=== PATIENT | female | born 1995 | race Caucasian/White ===

== ENCOUNTER 2016-04-04 09:16 | Inpatient (IN) | payer OTHER ==
[2016-04-04 09:25] VITALS: BMI 36.2
--- NOTE | 2016-04-04 10:59 | PDOC ---
[id number] Timing/Duration: reports: constant Quality: reports: severe <Beth Harman Last Filed: 04/04/16 16:38> <Tami Browne - Last Filed: 04/04/16 19:06> - General Chief Complaint: Pain Stated Complaint: 16 WKS , ABD PAIN Time Seen by Provider: 04/04/16 10:03 Past History - Past Medical History Other medical history: denies - Psycho/Social/Smoking Cessation Hx Anxiety: No Suicidal Ideation: No Smoking History: Never smoked Have you smoked in the past 12 months: No Information on smoking cessation initiated: No Hx Alcohol Use: No Drug/Substance Use Hx: No Substance Use Type: None <Beth Harman Last Filed: 04/04/16 16:38> <Tami Browne - Last Filed: 04/04/16 19:06> - Past Medical History Allergies/Adverse Reactions: Allergies Allergy/AdvReac Type Severity Reaction Status Date / Time No Known Allergies Allergy Verified 04/04/16 09:20 Home Medications: Ambulatory Orders NK [No Known Home Medication] 04/04/16 Review of Systems - Review of Systems Constitutional: No: Chills, Fever ABD/GI: No: Constipated, Nausea, Abdominal cramping : No: Burning, Flank Pain, Hematuria Musculoskeletal: No: Back Pain <Beth Harman Filed: 04/04/16 16:38> *Physical Exam - Vital Signs Last Vital Signs Temp Pulse Resp BP Pulse Ox 98.4 F 89 20 135/79 100 04/04/16 09:20 04/04/16 09:20 04/04/16 09:20 04/04/16 09:20 04/04/16 09:20 - Physical Exam General Appearance: Yes: Appropriately Dressed. No: Apparent Distress HEENT: positive: Normal Voice Neck: positive: Supple Respiratory/Chest: negative: Respiratory Distress Female Pelvic Exam: negative: cervical os closed, CMT, adnexal tenderness, vaginal bleeding Gastrointestinal/Abdominal: positive: Soft. negative: Tender, Distended Musculoskeletal: negative: CVA Tenderness Integumentary: positive: Dry, Warm Neurologic: positive: Fully Oriented, Alert, Normal Mood/Affect <Lara HarmanEpiMerly Last Filed: 04/04/16 16:38> - Vital Signs Last Vital Signs Temp Pulse Resp BP Pulse Ox 98.4 F 100 H 16 135/70 100 04/04/16 09:20 04/04/16 15:35 04/04/16 15:35 04/04/16 15:35 04/04/16 15:35 <Tami Browne - Last Filed: 04/04/16 19:06> ED Treatment Course - LABORATORY CBC & Chemistry Diagram: 04/04/16 11:11 04/04/16 11:11 - RADIOLOGY Radiology Studies Ordered: Category Date Time Status PELVIC / BLADDER US [US] Stat Ultrasound 04/04/16 10:39 Ordered LIMITED US [US] Stat Ultrasound 04/04/16 10:35 Ordered <Beth Harman - Last Filed: 04/04/16 16:38> - LABORATORY CBC & Chemistry Diagram: 04/04/16 11:11 04/04/16 11:11 - ADDITIONAL ORDERS Additional order review: Laboratory Results 04/04/16 04/04/16 11:11 11:11 Sodium 138 Potassium 4.0 Chloride 106 Carbon Dioxide 24 Anion Gap 8 BUN 5 L Creatinine 0.5 L Creat Clearance w eGFR > 60 Random Glucose 86 Calcium 8.8 Total Bilirubin 0.4 AST 14 L ALT 36 Alkaline Phosphatase 102 Total Protein 6.9 Albumin 3.2 L Beta HCG, Quant 10919.1 Urine Color Yellow Urine Appearance Cloudy Urine pH 5.0 Ur Specific [place] 1.015 Urine Protein 2+ H Urine Glucose (UA) Negative Urine Ketones Negative Urine Blood 2+ H Urine Nitrite Positive Urine Bilirubin Negative Urine Urobilinogen Negative Ur Leukocyte Esterase 3+ H Urine RBC 32 Urine WBC 259 Ur Epithelial Cells Rare Urine Bacteria Many Urine Mucus Rare Urine Yeast Moderate 04/04/16 11:11 RBC 4.77 MCV 79.0 L MCHC 32.4 RDW 17.8 H MPV 7.9 Neutrophils % 78.3 Lymphocytes % 14.1 Monocytes % 5.6 Eosinophils % 1.7 Basophils % 0.3 - Medications Given in the ED: ED Medications Discontinued Medications Generic Name Dose Route Start Last Admin Trade Name Freq PRN Reason Stop Dose Admin Ceftriaxone Sodium 1 mg 04/04/16 12:10 04/04/16 12:15 Rocephin - IVPUSH 04/04/16 12:11 Not Given ONCE ONE Sodium Chloride 1,000 mls @ 1,000 mls/hr 04/04/16 12:12 04/04/16 12:20 Normal Saline - IV 04/04/16 13:11 1,000 mls/hr ASDIR STA Administration Ceftriaxone Sodium 1 gm/ 50 mls @ 100 mls/hr 04/04/16 12:23 04/04/16 12:20 Dextrose IVPB 04/04/16 12:52 100 mls/hr ONCE ONE Administration <Tami Browne - Last Filed: 04/04/16 19:06> Medical Decision Making - Medical Decision Making 04/04/16 10:52 20-year-old female, morbid obesity, , approximately 16 weeks with no issues with so far as per patient, presents with urinary retention. Patient states for the past 12 hours, she has not been able to urinate despite having an urge and now having suprapubic discomfort. No hematuria, acute back pain, flank pain, nausea, vomiting, fever or chills. Had last BM 3 days ago which is normal per pt. Denies constipation. No history of similar episode. No new medications. See exam Urinary retention in 2nd trimester Concern for incarcerated gravid uterus vs uti Stable in ED w/ unremarkable pelvic exam and benign abd Has large distended bladder on US w/ +IUP w/ FHR -prasad placed -labs -official OB/bladder US -OB c/s 04/04/16 11:12 04/04/16 11:18 04/04/16 12:11 +uti w/ wbc of 14 on labs. Will give IV ceftriaxone. At this point, >600 cc urine output from prasad. US pending 04/04/16 14:42 IUP at ~15 weeks w/ FHR on US w/ possible low lying placenta, otherwise unremarkable US. Bladder empty w/ prasad in place. Will do TOV in ED and reassess 04/04/16 15:52 While having discussion with pt during which pt revealed that she was able to void on her own after prasad removal, pt then syncopized in front of myself and rest of ED staff. Did hit head but impact was soften when pt's family member partially broke fall. Pt's pulse remained intact and after several seconds, regained consciousness and states she is not sure what happened. Denies NEFF, dizziness,, n/v or cp. FS in the 90s w/ sinus tach to 102 on ekg. Will admit to obs at this time 04/04/16 16:23 04/04/16 16:24 Case d/w hospitalist and pt admitted. Dr Braswell of OB aware <Beth Harman - Last Filed: 04/04/16 16:38> *DC/Admit/Observation/Transfer - Discharge Dispostion Admit: Yes <Beth Harman - Last Filed: 04/04/16 16:38> - Attestations Physician Attestion: I reviewed the case with the mid-level practitioner and agree with the mid- level practitioner's assessment, diagnosis and disposition. <Tami Browne - Last Filed: 04/04/16 19:06> Diagnosis at time of Disposition: Urinary retention UTI (urinary tract infection) Qualifiers: Urinary tract infection type: acute cystitis Hematuria presence: without hematuria Qualified Code(s): N30.00 - Acute cystitis without hematuria Syncope Qualifiers: Syncope type: unspecified Qualified Code(s): R55 - Syncope and collapse - Discharge Dispostion Condition at time of disposition: Fair
[2016-04-04 11:30] LABS: BASOPHIL 0.3 % (0-2.0); EOSINOPHIL 1.7 % (0-4.5); MCH 25.6 pg (25.7-33.7); MCHC 32.4 g/dl (32.0-36.0); MEAN PLT VOLUME 7.9 fl (7.5-11.1); NEUTROPHILS 78.3 % (42.8-82.8); PLATELET COUNT 325 K/MM3 (134-434); RDW 17.8 % (11.6-15.6); WHITE BLOOD COUNT 14.9 K/mm3 (4.0-10.0)
[2016-04-04 11:31] LABS: URINE APPEARANCE CLOUDY; URINE BILIRUBIN NEGATIVE (NEGATIVE); URINE COLOR YELLOW; URINE GLUCOSE (UA) NEGATIVE (NEGATIVE); URINE KETONE NEGATIVE (NEGATIVE); URINE NITRITE POSITIVE (NEGATIVE); URINE UROBILINOGEN NEGATIVE E.U./dl (0.2-1.0)
[2016-04-04 11:32] LABS: URINE BLOOD 2+ (NEGATIVE); URINE LEUK ESTERASE 3+ (NEGATIVE); URINE PROTEIN 2+ (NEGATIVE)
[2016-04-04 11:40] LABS: ALBUMIN 3.2 g/dl (3.4-5.0); ANION GAP 8 (8-16); BILIRUBIN,TOTAL 0.4 mg/dL (0.2-1.0); CALCIUM 8.8 mg/dL (8.5-10.1); CO2 24 mmol/L (21-32); CREATININE 0.5 mg/dL (0.55-1.02); GLUCOSE,RANDOM 86 mg/dL (74-106); SGOT/AST 14 U/L (15-37); SGPT/ALT 36 U/L (12-78); TOT PROT 6.9 g/dl (6.4-8.2)
[2016-04-04 11:55] LABS: ALK PHOS 102 U/L (45-117)
[2016-04-04 12:07] LABS: URINE BACTERIA MANY /hpf (NONE SEEN); URINE MUCUS RARE; URINE RBC 32 /hpf (0-3); URINE WBC 259 /hpf (3-5); YEAST MODERATE
[2016-04-04] MEDS ORDERED: SODIUM CHLORIDE 1,000 ML IV STA (12:12)
[2016-04-04] MEDS ORDERED: CEFTRIAXONE 50 ML ONE (12:17)
[2016-04-04] MEDS ORDERED: CEFTRIAXONE 1 GM in DEXTROSE 5%-WATER - 50 ML IVPB ONE (12:23)
--- NOTE | 2016-04-04 16:22 | HP ---
CHIEF COMPLAINT: Urinary symptoms PCP: None OB: Dr. Alena Olsen HISTORY OF PRESENT ILLNESS: This is an otherwise healthy 20 year old female, , 16 wks , who presented to the ED today complaining of dysuria/ burning on urination and urinary retention since last night. She denies fevers/ chills, vomiting, back pain, or any other symptoms. ER course was notable for: (1) UA with 259 WBCs and positive nitrites, consistent with UTI (2) Rose placed in ED with 600 cc output (3) Rose then removed for trial of void; patient was able to urinate, but then had witnessed syncopal event The patient is currently symptom-free. She believes that her syncope was secondary to not eating all day. Recent Travel: None Social History: Lives with , not employed Smoking: None Alcohol: None Drugs: None Family History: Mother (had HTN and DM), father with HTN Allergies No Known Allergies Allergy (Verified 04/04/16 09:20) HOME MEDICATIONS: Medication Instructions Recorded NK [No Known Home Medication] 04/04/16 REVIEW OF SYSTEMS CONSTITUTIONAL: Absent: fever, chills, diaphoresis, generalized weakness, malaise, loss of appetite, weight change HEENT: Absent: rhinorrhea, nasal congestion, throat pain, throat swelling, difficulty swallowing, mouth swelling, ear pain, eye pain, visual changes CARDIOVASCULAR: Syncope Absent: chest pain, palpitations, irregular heart rate, lightheadedness, peripheral edema RESPIRATORY: Absent: cough, shortness of breath, dyspnea with exertion, orthopnea, wheezing, stridor, hemoptysis GASTROINTESTINAL: Absent: abdominal pain, abdominal distension, nausea, vomiting, diarrhea, constipation, melena, hematochezia GENITOURINARY: See HPI MUSCULOSKELETAL: Absent: myalgia, arthralgia, joint swelling, back pain, neck pain SKIN: Absent: rash, itching, pallor HEMATOLOGIC/IMMUNOLOGIC: Absent: easy bleeding, easy bruising, lymphadenopathy, frequent infections ENDOCRINE: Absent: unexplained weight gain, unexplained weight loss, heat intolerance, cold intolerance NEUROLOGIC: Absent: headache, focal weakness or paresthesias, dizziness, unsteady gait, seizure, mental status changes, bladder or bowel incontinence PSYCHIATRIC: Absent: anxiety, depression, suicidal or homicidal ideation, hallucinations. PHYSICAL EXAMINATION Vital Signs - 24 hr 04/04/16 04/04/16 09:20 13:20 Temperature 98.4 F Pulse Rate 89 Pulse Rate [ 97 H Apical] Respiratory 20 20 Rate Blood Pressure 135/79 Blood Pressure 128/70 [Left Arm] O2 Sat by Pulse 100 99 Oximetry (%) GENERAL: Awake, alert, and fully oriented, in no acute distress. HEAD: Normal with no signs of trauma. EYES: Pupils equal, round and reactive to light, extraocular movements intact, sclera anicteric, conjunctiva clear. No lid lag. EARS, NOSE, THROAT: Ears normal, nares patent, oropharynx clear without exudates. Moist mucous membranes. NECK: Normal range of motion, supple without lymphadenopathy, JVD, or masses. LUNGS: Breath sounds equal, clear to auscultation bilaterally. No wheezes, and no crackles. No accessory muscle use. HEART: Regular rate and rhythm, normal S1 and S2 without murmur, rub or gallop. ABDOMEN: Soft, nontender, gravid uterus palpable below umbilicus, mild tenderness over bladder, normoactive bowel sounds, no guarding, no rebound, no masses. No hepatomegaly or splenomegaly. MUSCULOSKELETAL: Normal range of motion at all joints. No bony deformities or tenderness. No CVA tenderness. UPPER EXTREMITIES: 2+ pulses, warm, well-perfused. No cyanosis. No clubbing. Cap refill <2 seconds. No peripheral edema. LOWER EXTREMITIES: 2+ pulses, warm, well-perfused. No calf tenderness. No peripheral edema. NEUROLOGICAL: Cranial nerves II-XII intact. Normal speech. Normal gait. PSYCHIATRIC: Cooperative. Good eye contact. Appropriate mood and affect. SKIN: Warm, dry, normal turgor, no rashes or lesions noted. Laboratory Results - last 24 hr 04/04/16 04/04/16 04/04/16 11:11 11:11 11:11 WBC 14.9 H RBC 4.77 Hgb 12.2 Hct 37.7 MCV 79.0 L MCHC 32.4 RDW 17.8 H Plt Count 325 MPV 7.9 Neutrophils % 78.3 Lymphocytes % 14.1 Monocytes % 5.6 Eosinophils % 1.7 Basophils % 0.3 Sodium 138 Potassium 4.0 Chloride 106 Carbon Dioxide 24 Anion Gap 8 BUN 5 L Creatinine 0.5 L Creat Clearance w eGFR > 60 Random Glucose 86 Calcium 8.8 Total Bilirubin 0.4 AST 14 L ALT 36 Alkaline Phosphatase 102 Total Protein 6.9 Albumin 3.2 L Beta HCG, Quant 33091.1 Urine Color Yellow Urine Appearance Cloudy Urine pH 5.0 Ur Specific [place] 1.015 Urine Protein 2+ H Urine Glucose (UA) Negative Urine Ketones Negative Urine Blood 2+ H Urine Nitrite Positive Urine Bilirubin Negative Urine Urobilinogen Negative Ur Leukocyte Esterase 3+ H Urine RBC 32 Urine WBC 259 Ur Epithelial Cells Rare Urine Bacteria Many Urine Mucus Rare Urine Yeast Moderate ASSESSMENT/PLAN: 20 year old female in second trimester of placed in observation for syncopal episode in context of UTI/urinary retention. Problem List - Problem (1) Syncope Assessment/Plan: -Suspect vasovagal event based on history and exam -Monitor on telemetry to rule out dysrhythmia -Echocardiogram -Hydration Code(s): R55 - SYNCOPE AND COLLAPSE Qualifiers: Syncope type: unspecified Qualified Code(s): R55 - Syncope and collapse (2) UTI (urinary tract infection) Assessment/Plan: -Continue Ceftriaxone 1g daily -Follow up urine culture Code(s): N39.0 - URINARY TRACT INFECTION, SITE NOT SPECIFIED Qualifiers: Urinary tract infection type: acute cystitis Hematuria presence: without hematuria Qualified Code(s): N30.00 - Acute cystitis without hematuria (3) Assessment/Plan: -Ob consultation requested Code(s): Z33.1 - STATE, INCIDENTAL (4) DVT prophylaxis Assessment/Plan: -Low risk (short expected length of stay) -Ambulation Code(s): [id number] - Visit type - Emergency Visit Emergency Visit: Yes ED Registration Date: 04/04/16 Care time: The patient presented to the Emergency Department on the above date and was hospitalized for further evaluation of their emergent condition. - New Patient This patient is new to me today: Yes Date on this admission: 04/04/16 - Critical Care Critical Care patient: No
[2016-04-04] MEDS ORDERED: ONDANSETRON 4 MG/2 ML VIAL IVPB PRN (16:23)
[2016-04-04] MEDS ORDERED: ACETAMINOPHEN 325 MG TABLET (FP) PO PRN (16:23)
[2016-04-04] MEDS ORDERED: SODIUM CHLORIDE 1,000 ML IV SCH (16:30)
--- NOTE | 2016-04-04 16:47 | PDOC ---
*Physical Exam - Vital Signs Last Vital Signs Temp Pulse Resp BP Pulse Ox 98.4 F 100 H 16 135/70 100 04/04/16 09:20 04/04/16 15:35 04/04/16 15:35 04/04/16 15:35 04/04/16 15:35 ED Treatment Course - LABORATORY CBC & Chemistry Diagram: 04/04/16 11:11 04/04/16 11:11 - ADDITIONAL ORDERS Additional order review: Laboratory Results 04/04/16 04/04/16 11:11 11:11 Sodium 138 Potassium 4.0 Chloride 106 Carbon Dioxide 24 Anion Gap 8 BUN 5 L Creatinine 0.5 L Creat Clearance w eGFR > 60 Random Glucose 86 Calcium 8.8 Total Bilirubin 0.4 AST 14 L ALT 36 Alkaline Phosphatase 102 Total Protein 6.9 Albumin 3.2 L Beta HCG, Quant 45488.1 Urine Color Yellow Urine Appearance Cloudy Urine pH 5.0 Ur Specific [place] 1.015 Urine Protein 2+ H Urine Glucose (UA) Negative Urine Ketones Negative Urine Blood 2+ H Urine Nitrite Positive Urine Bilirubin Negative Urine Urobilinogen Negative Ur Leukocyte Esterase 3+ H Urine RBC 32 Urine WBC 259 Ur Epithelial Cells Rare Urine Bacteria Many Urine Mucus Rare Urine Yeast Moderate 04/04/16 11:11 RBC 4.77 MCV 79.0 L MCHC 32.4 RDW 17.8 H MPV 7.9 Neutrophils % 78.3 Lymphocytes % 14.1 Monocytes % 5.6 Eosinophils % 1.7 Basophils % 0.3 - RADIOLOGY Radiology Studies Ordered: Category Date Time Status PELVIC / BLADDER US [US] Stat Ultrasound 04/04/16 10:39 Completed LIMITED US [US] Stat Ultrasound 04/04/16 10:35 Completed - Medications Given in the ED: ED Medications Discontinued Medications Generic Name Dose Route Start Last Admin Trade Name Freq PRN Reason Stop Dose Admin Ceftriaxone Sodium 1 mg 04/04/16 12:10 04/04/16 12:15 Rocephin - IVPUSH 04/04/16 12:11 Not Given ONCE ONE Sodium Chloride 1,000 mls @ 1,000 mls/hr 04/04/16 12:12 04/04/16 12:20 Normal Saline - IV 04/04/16 13:11 1,000 mls/hr ASDIR STA Administration Ceftriaxone Sodium 1 gm/ 50 mls @ 100 mls/hr 04/04/16 12:23 04/04/16 12:20 Dextrose IVPB 04/04/16 12:52 100 mls/hr ONCE ONE Administration *DC/Admit/Observation/Transfer Diagnosis at time of Disposition: Urinary retention UTI (urinary tract infection) Qualifiers: Urinary tract infection type: acute cystitis Hematuria presence: without hematuria Qualified Code(s): N30.00 - Acute cystitis without hematuria Syncope Qualifiers: Syncope type: unspecified Qualified Code(s): R55 - Syncope and collapse - Discharge Dispostion Condition at time of disposition: Fair Admit: Yes Decision to Admit order Date/Time: Decision to Admit Order Category Date Time Status Decision to Admit to Hospital Routine Phy Order 04/04/16 16:16 Ordered
[2016-04-04] MEDS: DOCUSATE SODIUM 100 MG CAPSULE (FP) PO SCH (21:47)
--- NOTE | 2016-04-05 03:29 | HOSP ---
Subjective - Review of Symptoms Subjective: The pt is lyying in bed comfortably. Denies palpitations, chest pain, SOB, dizziness. Cardiovascular: No: Chest Pain, Palpitations Neurological: No: Change in speech, Confusion Physical Examination Vital Signs: Vital Signs Temperature 98.0 F 04/05/16 02:00 Pulse Rate 87 04/05/16 02:00 Respiratory Rate 04/05/16 02:00 Blood Pressure 132/69 04/05/16 02:00 O2 Sat by Pulse Oximetry (%) 100 04/04/16 21:00 Constitutional: Yes: Well Nourished, Obese () Eyes: Yes: Conjunctiva Clear, EOM Intact HENT: Yes: Atraumatic, Normocephalic Cardiovascular: Yes: Regular Rate and Rhythm. No: Gallop, Murmur Respiratory: Yes: Regular, CTA Bilaterally Gastrointestinal: Yes: Normal Bowel Sounds, Abdomen, Obese Hospitalist Encounter Assessment: 20 year old female in second trimester of placed in observation for syncopal episode in context of UTI/urinary retention. Outcome: We were called to assess the pt because of one episode of one episode of sinus pause she had recorded on monitor. We recommended to repeat 12 lead EKG and TSH, lipid panel in AM. We also ordered Cardiology consultation. Repeated EKG showed NSR, no ST changes when compared to the previous one. VS were WNL. Primary Physician Notified: Rosa Isela Franks Visit type - Emergency Visit Emergency Visit: Yes ED Registration Date: 04/04/16 Care time: The patient presented to the Emergency Department on the above date and was hospitalized for further evaluation of their emergent condition. - New Patient This patient is new to me today: Yes Date on this admission: 04/07/16 - Critical Care Critical Care patient: No
[2016-04-05] MEDS: DOCUSATE SODIUM 100 MG CAPSULE (FP) PO SCH ×3 (06:47→21:12)
[2016-04-05 07:31] LABS: BASOPHIL 0.4 % (0-2.0); EOSINOPHIL 2.1 % (0-4.5); MCHC 32.8 g/dl (32.0-36.0); MEAN CELL VOLUME 79.2 fl (80-96); MEAN PLT VOLUME 7.9 fl (7.5-11.1); NEUTROPHILS 70.2 % (42.8-82.8); PLATELET COUNT 299 K/MM3 (134-434); RDW 17.8 % (11.6-15.6); WHITE BLOOD COUNT 11.8 K/mm3 (4.0-10.0)
[2016-04-05 08:30] LABS: ALBUMIN 2.7 g/dl (3.4-5.0); ANION GAP 8 (8-16); CALCIUM 8.5 mg/dL (8.5-10.1); CO2 23 mmol/L (21-32); CREATININE 0.3 mg/dL (0.55-1.02); GLUCOSE,RANDOM 82 mg/dL (74-106); SGOT/AST 18 U/L (15-37); SGPT/ALT 31 U/L (12-78)
[2016-04-05 08:36] LABS: CHOLESTEROL 175 mg/dL (50-200); LDL CHOLESTEROL (ONLY SJRH) 93 mg/dL (5-100)
[2016-04-05 08:40] LABS: ALK PHOS 89 U/L (45-117); BILIRUBIN,TOTAL 0.5 mg/dL (0.2-1.0); THYROID STIMULATING HORMONE 3.57 uIU/ml (0.358-3.74); TOT PROT 5.8 g/dl (6.4-8.2)
[2016-04-05] MEDS ORDERED: PT OWN MED DRAWER 7, Y5N ONE ×2 (08:40→11:16)
[2016-04-05] MEDS: cefTRIAXone 1 GM/50 ML BAG (PRE-DOCKED) IVPB SCH (09:07)
[2016-04-05] MEDS ORDERED: CEFTRIAXONE 1 GM in DEXTROSE 5%-WATER - 50 ML IVPB SCH (10:00)
[2016-04-05] MEDS: PRENATAL VITAMINS W/ FOLIC ACID TABLET (FP) PO SCH (12:52)
--- NOTE | 2016-04-05 13:10 | CONSULT ---
Cardiology Consult (text) - Consultation Consultation Note: Cardiology 20 yr female 18 weeks came for urinary retention, once getting up dizzy; no other cardiac symptoms social NA FH NA allergy NA Op C section PMH NA PE: vitals stable normal cardio-pulmonary exam abdomen soft no leg edema EKG NSR Impression: No evidence of cardiac disease TSH lipids normal telemetry at night 4.9 sec sinus pause, most likely vagal does not want to stay Rec: Telemetry observation one more day/night Echocardiogram and prolonged Holter/telemetry as outpatient, if she wants to be discharged
--- NOTE | 2016-04-05 22:48 | PN ---
Physical Exam: SUBJECTIVE: Patient seen and examined Patient is comfortable with no acute distress OBJECTIVE: Vital Signs Temperature 98.5 F 04/05/16 18:17 Pulse Rate 86 04/05/16 18:17 Respiratory Rate 20 04/05/16 18:17 Blood Pressure 122/64 04/05/16 18:17 O2 Sat by Pulse Oximetry (%) 97 04/05/16 16:00 GENERAL: The patient is awake, alert, and fully oriented, in no acute distress. HEAD: Normal with no signs of trauma. EYES: PERRL, extraocular movements intact, sclera anicteric, conjunctiva clear. ENT: Ears normal, nares patent, oropharynx clear without exudates, moist mucous membranes. NECK: Trachea midline, full range of motion, supple. LUNGS: Breath sounds equal, clear to auscultation bilaterally, no wheezes, no crackles, no accessory muscle use. HEART: Regular rate and rhythm, S1, S2 without murmur, rub or gallop. ABDOMEN: Soft, nontender, nondistended, normoactive bowel sounds, no guarding, no rebound, no hepatosplenomegaly, no masses. EXTREMITIES: 2+ pulses, warm, well-perfused, no edema. NEUROLOGICAL: Cranial nerves II through XII grossly intact. Normal speech, gait not observed. PSYCH: Normal mood, normal affect. SKIN: Warm, dry, normal turgor, no rashes or lesions noted CBCD WBC 11.8 K/mm3 (4.0-10.0) H 04/05/16 05:00 RBC 4.19 M/mm3 (3.60-5.2) 04/05/16 05:00 Hgb 10.9 GM/dL (10.7-15.3) D 04/05/16 05:00 Hct 33.2 % (32.4-45.2) 04/05/16 05:00 MCV 79.2 fl (80-96) L 04/05/16 05:00 MCHC 32.8 g/dl (32.0-36.0) 04/05/16 05:00 RDW 17.8 % (11.6-15.6) H 04/05/16 05:00 Plt Count 299 K/MM3 (134-434) 04/05/16 05:00 MPV 7.9 fl (7.5-11.1) 04/05/16 05:00 CMP Sodium 139 mmol/L (136-145) 04/05/16 05:00 Potassium 3.8 mmol/L (3.5-5.1) 04/05/16 05:00 Chloride 108 mmol/L (98-107) H 04/05/16 05:00 Carbon Dioxide 23 mmol/L (21-32) 04/05/16 05:00 Anion Gap 8 (8-16) 04/05/16 05:00 BUN 5 mg/dL (7-18) L 04/05/16 05:00 Creatinine 0.3 mg/dL (0.55-1.02) L D 04/05/16 05:00 Creat Clearance w eGFR > 60 (>60) 04/05/16 05:00 Random Glucose 82 mg/dL (74-106) 04/05/16 05:00 Calcium 8.5 mg/dL (8.5-10.1) 04/05/16 05:00 Total Bilirubin 0.5 mg/dL (0.2-1.0) D 04/05/16 05:00 AST 18 U/L (15-37) D 04/05/16 05:00 ALT 31 U/L (12-78) 04/05/16 05:00 Alkaline Phosphatase 89 U/L (45-117) 04/05/16 05:00 Total Protein 5.8 g/dl (6.4-8.2) L 04/05/16 05:00 Albumin 2.7 g/dl (3.4-5.0) L 04/05/16 05:00 Active Medications Generic Name Dose Route Start Last Admin Trade Name Freq PRN Reason Stop Dose Admin Acetaminophen 650 mg 04/04/16 16:23 Tylenol - PO Q6H PRN FEVER OR PAIN Ceftriaxone Sodium 1 gm 04/05/16 10:00 04/05/16 09:07 Rocephin 1gm Ivpb (Pre-Docked) IVPB 1 gm DAILY EDILBERTO Administration Docusate Sodium 100 mg 04/04/16 22:00 04/05/16 21:12 Colace - PO Not Given TID EDILBERTO Ondansetron HCl 4 mg 04/04/16 16:23 Zofran Injection IVPB Q6H PRN NAUSEA Multivit/Folic Acid/Iron 1 tab 04/05/16 10:00 04/05/16 12:52 Vitamins (Sjr) - PO 1 tab DAILY EDILBERTO Administration Medication Instructions Recorded NK [No Known Home Medication] 04/04/16 ASSESSMENT/PLAN: This is an otherwise healthy 20 year old female, , 16 wks , who presented to the ED today complaining of dysuria/burning on urination and urinary retention since last night. She denies fevers/chills, vomiting, back pain, or any other symptoms. # s/p Syncope vasovagal monitor in tele # UTI (urinary tract infection) Continue Ceftriaxone 1g daily;Follow up urine culture # Ob consultation requested DVT prophylax Visit type - Emergency Visit Emergency Visit: Yes ED Registration Date: 04/04/16 Care time: The patient presented to the Emergency Department on the above date and was hospitalized for further evaluation of their emergent condition. - New Patient This patient is new to me today: Yes Date on this admission: 04/05/16 - Critical Care Critical Care patient: No
[2016-04-06] MEDS: DOCUSATE SODIUM 100 MG CAPSULE (FP) PO SCH ×3 (05:06→21:35)
[2016-04-06] MEDS ORDERED: PT OWN MED DRAWER 7, Y5N ONE (09:34)
[2016-04-06] MEDS: PRENATAL VITAMINS W/ FOLIC ACID TABLET (FP) PO SCH (09:35)
[2016-04-06] MEDS: cefTRIAXone 1 GM/50 ML BAG (PRE-DOCKED) IVPB SCH (09:35)
--- NOTE | 2016-04-06 11:00 | PN ---
Physical Exam: SUBJECTIVE: Patient seen and examined Pt i awake, alert and oriented to time, place and person No s/s fo acute distress no fever, chills, no n/v no chest or palpitation, sob no dizziness or confusion no dysuria, no hematuria OBJECTIVE: Vital Signs Period Temp Pulse Resp BP Sys/Voss Pulse Ox Last 24 Hr 97.8 F-98.5 F 75-86 16-88 121-136/60-85 97-97 GENERAL: The patient is awake, alert, and fully oriented, in no acute distress. HEAD: Normal with no signs of trauma. EYES: PERRL, extraocular movements intact, sclera anicteric, conjunctiva clear. No ptosis. ENT: Ears normal, nares patent, oropharynx clear without exudates, moist mucous membranes. NECK: Trachea midline, full range of motion, supple. LUNGS: Breath sounds equal, clear to auscultation bilaterally, no wheezes, no crackles, no accessory muscle use. HEART: irregularly irregular, S1, S2 without murmur, rub or gallop. ABDOMEN: Soft, nontender, nondistended, normoactive bowel sounds, no guarding, no rebound, no hepatosplenomegaly, no masses. EXTREMITIES: 2+ pulses, warm, well-perfused, no edema. NEUROLOGICAL: Normal speech, gait not observed. PSYCH: Normal mood, normal affect. SKIN: Warm, dry, normal turgor, no rashes or lesions noted Active Medications Generic Name Dose Route Start Last Admin Trade Name Freq PRN Reason Stop Dose Admin Acetaminophen 650 mg 04/04/16 16:23 Tylenol - PO Q6H PRN FEVER OR PAIN Ceftriaxone Sodium 1 gm 04/05/16 10:00 04/06/16 09:35 Rocephin 1gm Ivpb (Pre-Docked) IVPB 1 gm DAILY EDILBERTO Administration Docusate Sodium 100 mg 04/04/16 22:00 04/06/16 05:06 Colace - PO Not Given TID EDILBERTO Ondansetron HCl 4 mg 04/04/16 16:23 Zofran Injection IVPB Q6H PRN NAUSEA Multivit/Folic Acid/Iron 1 tab 04/05/16 10:00 04/06/16 09:35 Vitamins (Sjr) - PO 1 tab DAILY EDILBERTO Administration CBC, BMP 04/05/16 05:00 04/05/16 05:00 Laboratory Tests 04/04/16 04/04/16 04/05/16 11:11 11:11 05:00 WBC 14.9 H Calcium 8.5 Magnesium 2.0 Total Bilirubin 0.5 D AST 18 D ALT 31 Alkaline Phosphatase 89 Total Protein 5.8 L Albumin 2.7 L Total LDL Cholesterol HDL Cholesterol TSH 3.57 Beta HCG, Quant 52387.1 04/05/16 05:00 WBC Calcium Magnesium Total Bilirubin AST ALT Alkaline Phosphatase Total Protein Albumin Total LDL Cholesterol 93 HDL Cholesterol 63 H TSH Beta HCG, Quant Microbiology 04/04/16 10:35 Urine - Urine Rose Urine Culture - Final Escherichia Coli US 04/04/16: Single live intrauterine gestation of 15 weeks 5 days gestational age. US bladder 04/04/16: Evaluation of the urinary bladder is limited as a Rose catheter is present within the bladder. The bladder is empty. ASSESSMENT/PLAN: 20 year 15 weeks old female presented with Dysuria and urinary retention on since 04/03/15. Pt denies fever, chills, rigors, n/v, back pain, hematuria. IN ED pt was unable to urinate and had witnessed syncope. Pt aslo had a 4.9 sec pause overnight but was asymptomatic. Syncope likely vaso vagal Episode of Sinus arrhythmia and sinus tachycardia less than 130 Episode of bradycardia 2 seconds pause, One episode of HR 37 while sleeping Pt seen by migratory game bird biologist who is ok with pt being DC with holter monitor Echo pending UTI Urine culture is positive for E coli martell-sensitive On Ceftriaxone 1gm IV daily Will switch to PO antibiotics on discharge Consider Augmentin 875 PO q12 x3-7 days Intrauterine HCG quant [id number] OB US showed intrauterine gestation 15 weeks 5 days with HR 157 OBGYN consult pending FEN Fluid : none Electrolytes : no abnormalities Nutrition: regular diet DVT Prophylaxis: early ambulation Disposition: consider DC if negative echo, and cleared by cardio and OBGYN Visit type - Emergency Visit Emergency Visit: Yes ED Registration Date: 04/04/16 Care time: The patient presented to the Emergency Department on the above date and was hospitalized for further evaluation of their emergent condition. - New Patient This patient is new to me today: Yes Date on this admission: 04/06/16 - Critical Care Critical Care patient: No - Discharge Referral Referred to [facility] Med P.C.: No
--- NOTE | 2016-04-06 13:01 | PN ---
Teaching Attending Note Name of Resident: Aren Yoo ATTENDING PHYSICIAN STATEMENT I saw and evaluated the patient. I reviewed the resident's note and discussed the case with the resident. I agree with the resident's findings and plan as documented. SUBJECTIVE: comfortable with no acute distress, no further dizziness, no nausea or vomiting. OBJECTIVE: Vital Signs Temperature 98.1 F 04/06/16 08:52 Pulse Rate 75 04/06/16 08:52 Respiratory Rate 20 04/06/16 08:52 Blood Pressure 121/60 04/06/16 08:52 O2 Sat by Pulse Oximetry (%) 97 04/05/16 21:00 GENERAL: The patient is awake, alert, and fully oriented, in no acute distress. HEAD: Normal with no signs of trauma. EYES: PERRL, extraocular movements intact, sclera anicteric, conjunctiva clear. ENT: Ears normal, nares patent, oropharynx clear without exudates, moist mucous membranes. NECK: Trachea midline, full range of motion, supple. LUNGS: Breath sounds equal, clear to auscultation bilaterally, no wheezes, no crackles, no accessory muscle use. HEART: Regular rate and rhythm, S1, S2 without murmur, rub or gallop. ABDOMEN: Soft, nontender, nondistended, large abdomen, Positive BS, no guarding , no rebound, no masses appreciated. EXTREMITIES: 2+ pulses, warm, well-perfused, no edema. NEUROLOGICAL: Cranial nerves II through XII grossly intact. Normal speech, gait not observed. PSYCH: Normal mood, normal affect. SKIN: Warm, dry, normal turgor, no rashes or lesions noted CBCD WBC 11.8 K/mm3 (4.0-10.0) H 04/05/16 05:00 RBC 4.19 M/mm3 (3.60-5.2) 04/05/16 05:00 Hgb 10.9 GM/dL (10.7-15.3) D 04/05/16 05:00 Hct 33.2 % (32.4-45.2) 04/05/16 05:00 MCV 79.2 fl (80-96) L 04/05/16 05:00 MCHC 32.8 g/dl (32.0-36.0) 04/05/16 05:00 RDW 17.8 % (11.6-15.6) H 04/05/16 05:00 Plt Count 299 K/MM3 (134-434) 04/05/16 05:00 MPV 7.9 fl (7.5-11.1) 04/05/16 05:00 CMP Sodium 139 mmol/L (136-145) 04/05/16 05:00 Potassium 3.8 mmol/L (3.5-5.1) 04/05/16 05:00 Chloride 108 mmol/L (98-107) H 04/05/16 05:00 Carbon Dioxide 23 mmol/L (21-32) 04/05/16 05:00 Anion Gap 8 (8-16) 04/05/16 05:00 BUN 5 mg/dL (7-18) L 04/05/16 05:00 Creatinine 0.3 mg/dL (0.55-1.02) L D 04/05/16 05:00 Creat Clearance w eGFR > 60 (>60) 04/05/16 05:00 Random Glucose 82 mg/dL (74-106) 04/05/16 05:00 Calcium 8.5 mg/dL (8.5-10.1) 04/05/16 05:00 Total Bilirubin 0.5 mg/dL (0.2-1.0) D 04/05/16 05:00 AST 18 U/L (15-37) D 04/05/16 05:00 ALT 31 U/L (12-78) 04/05/16 05:00 Alkaline Phosphatase 89 U/L (45-117) 04/05/16 05:00 Total Protein 5.8 g/dl (6.4-8.2) L 04/05/16 05:00 Albumin 2.7 g/dl (3.4-5.0) L 04/05/16 05:00 Microbiology 04/04/16 10:35 Urine - Urine Rose Urine Culture - Final Escherichia Coli sensitive to everythting ASSESSMENT AND PLAN: This is an otherwise healthy 20 year old female, , 16 wks , who presented to the ED today complaining of dysuria/burning on urination and urinary retention since last night. She denies fevers/chills, vomiting, back pain, or any other symptoms. # s/p Syncope vasovagal monitor in tele # UTI (urinary tract infection) Continue Ceftriaxone 1g daily; urine culture positive for E.Coli sensitive to Rocephin # Ob consultation requested waiting for consult. DVT prophylax: early ambulation prolonged Holter/telemetry as an outpatient. possible dc in am pending echo
[2016-04-07] MEDS: DOCUSATE SODIUM 100 MG CAPSULE (FP) PO SCH ×2 (05:19→14:23)
[2016-04-07 07:20] LABS: MCHC 32.5 g/dl (32.0-36.0); MEAN PLT VOLUME 8.1 fl (7.5-11.1); PLATELET COUNT 294 K/MM3 (134-434); RDW 17.8 % (11.6-15.6); WHITE BLOOD COUNT 11.4 K/mm3 (4.0-10.0)
--- NOTE | 2016-04-07 07:45 | PN ---
Physical Exam: SUBJECTIVE: Patient seen and examined OBJECTIVE: Vital Signs Period Temp Pulse Resp BP Sys/Voss Pulse Ox Last 24 Hr 98.1 F-99.2 F 75-99 16-20 113-142/54-70 98 GENERAL: The patient is awake, alert, and fully oriented, in no acute distress. HEAD: Normal with no signs of trauma. EYES: PERRL, extraocular movements intact, sclera anicteric, conjunctiva clear. No ptosis. ENT: Ears normal, nares patent, oropharynx clear without exudates, moist mucous membranes. NECK: Trachea midline, full range of motion, supple. LUNGS: Breath sounds equal, clear to auscultation bilaterally, no wheezes, no crackles, no accessory muscle use. HEART: irregularly irregular, S1, S2 without murmur, rub or gallop. ABDOMEN: Soft, nontender, nondistended, normoactive bowel sounds, no guarding, no rebound, no hepatosplenomegaly, no masses. EXTREMITIES: 2+ pulses, warm, well-perfused, no edema. NEUROLOGICAL: Normal speech, gait not observed. PSYCH: Normal mood, normal affect. SKIN: Warm, dry, normal turgor, no rashes or lesions noted Active Medications Generic Name Dose Route Start Last Admin Trade Name Freq PRN Reason Stop Dose Admin Acetaminophen 650 mg 04/04/16 16:23 Tylenol - PO Q6H PRN FEVER OR PAIN Ceftriaxone Sodium 1 gm 04/05/16 10:00 04/06/16 09:35 Rocephin 1gm Ivpb (Pre-Docked) IVPB 1 gm DAILY EDILBERTO Administration Docusate Sodium 100 mg 04/04/16 22:00 04/07/16 05:19 Colace - PO Not Given TID EDILBERTO Ondansetron HCl 4 mg 04/04/16 16:23 Zofran Injection IVPB Q6H PRN NAUSEA Multivit/Folic Acid/Iron 1 tab 04/05/16 10:00 04/06/16 09:35 Vitamins (Sjr) - PO 1 tab DAILY EDILBERTO Administration ASSESSMENT/PLAN:
[2016-04-07 07:51] LABS: CALCIUM 8.5 mg/dL (8.5-10.1); CREATININE 0.4 mg/dL (0.55-1.02); MAGNESIUM 1.9 mg/dL (1.8-2.4); PHOSPHOROUS 4.2 mg/dL (2.5-4.9)
--- NOTE | 2016-04-07 08:35 | CONSULT ---
Cardiology Consult (text) - Consultation Consultation Note: cardiology no symptoms vitals stable normal cardio-pulmonary exam no leg edema Impression: no more events on telemetry stable Rec: Discharge with outpatient follow-up
[2016-04-07 10:02] VITALS: BP 102/56; PULSE 84; TEMP 98.2
[2016-04-07] MEDS: cefTRIAXone 1 GM/50 ML BAG (PRE-DOCKED) IVPB SCH (10:05)
--- NOTE | 2016-04-07 10:45 | DS ---
Physical Exam: SUBJECTIVE: Patient seen and examined pt is feeling , no dysuria no s/s of acute distress no chest pain, no palpitations no n/v no fever or chills OBJECTIVE: Vital Signs Period Temp Pulse Resp BP Sys/Voss Pulse Ox Last 24 Hr 98 F-99.2 F 75-99 14-20 102-142/54-70 98 PHYSICAL EXAM GENERAL: The patient is awake, alert, and fully oriented, in no acute distress. HEAD: Normal with no signs of trauma. EYES: PERRL, extraocular movements intact, sclera anicteric, conjunctiva clear. No ptosis. ENT: Ears normal, nares patent, oropharynx clear without exudates, moist mucous membranes. NECK: Trachea midline, full range of motion, supple. LUNGS: Breath sounds equal, clear to auscultation bilaterally, no wheezes, no crackles, no accessory muscle use. HEART: irregular, S1, S2 without murmur, rub or gallop. ABDOMEN: Soft, nontender, nondistended, normoactive bowel sounds, no guarding, no rebound, no hepatosplenomegaly, no masses. EXTREMITIES: 2+ pulses, warm, well-perfused, no edema. NEUROLOGICAL: Normal speech, gait not observed. PSYCH: Normal mood, normal affect. SKIN: Warm, dry, normal turgor, no rashes or lesions noted LABS Laboratory Results - last 24 hr 04/07/16 04/07/16 05:35 05:35 WBC 11.4 H RBC 4.39 Hgb 11.4 Hct 35.1 MCV 80.0 MCHC 32.5 RDW 17.8 H Plt Count 294 MPV 8.1 Sodium 138 Potassium 3.9 Chloride 105 Carbon Dioxide 24 Anion Gap 9 BUN 7 D Creatinine 0.4 L D Random Glucose 81 Calcium 8.5 Phosphorus 4.2 Magnesium 1.9 CBC, BMP 04/07/16 05:35 04/07/16 05:35 Microbiology 04/04/16 10:35 Urine - Urine Rose Urine Culture - Final Escherichia Coli Laboratory Tests 04/07/16 05:35 Calcium 8.5 Phosphorus 4.2 Magnesium 1.9 US 04/04/16: Single live intrauterine gestation of 15 weeks 5 days gestational age. US bladder 04/04/16: Evaluation of the urinary bladder is limited as a Rose catheter is present within the bladder. The bladder is empty. HOSPITAL COURSE: Date of Admission:04/04/16 This is an otherwise healthy 20 year old female, , 16 wks , who presented to the ED today complaining of dysuria/burning on urination and urinary retention since last night. She denies fevers/chills, vomiting, back pain, or any other symptoms. ER course was notable for: (1) UA with 259 WBCs and positive nitrites, consistent with UTI (2) Rose placed in ED with 600 cc output (3) Rose then removed for trial of void; patient was able to urinate, but then had witnessed syncopal event The patient is currently symptom-free. She believes that her syncope was secondary to not eating all day. 20 year 15 weeks old female presented with Dysuria and urinary retention on since 04/03/15. Pt denies fever, chills, rigors, n/v, back pain, hematuria. IN ED pt was unable to urinate and had witnessed syncope. Pt aslo had a 4.9 sec pause overnight but was asymptomatic. Syncope likely vaso vagal. Episode of Sinus arrhythmia and sinus tachycardia less than 130, Episode of bradycardia 2 seconds pause, One episode of HR 37 while sleeping yesterday. No major eventy ovewrnight. Pt seen by senior asset manager who recommends discharge with outpatient follow up. Follow up echcardiogram result UTI Urine culture is positive for E coli martell-sensitive, On Ceftriaxone 1gm IV daily x4 days. Will switch to PO antibiotics on discharge. start amoxicillin 500mg PO q8h x3 days Intrauterine HCG quant [id number], OB US showed intrauterine gestation 15 weeks 5 days with HR 157, resume vitamins. Pt seen by OBGYN, will follow outpatient Date of Discharge: 04/07/16 Minutes to complete discharge: 35 Discharge Summary Reason For Visit: URINARY RETENTION; URINARY TRACT INFECTION;SYNCOPE Current Active Problems DVT prophylaxis (Acute) (Acute) Syncope (Acute) UTI (urinary tract infection) (Acute) Urinary retention (Acute) Condition: Stable - Instructions Diet, Activity, Other Instructions: Discharge Home Resume Home diet resume home activity Follow up with Cardiology within 1-2 weeks follow echocardiogram result Follow up with OBGYN within 1 week Continue vitamins If any pain, burning on urination, blood in urine, fever, chills, nausea, vomiting, back pain, low abdominal pain. Please contact your OBGYN. Referrals: David Vizcarra MD [Staff Physician] - Alena Olsen MD [Staff Physician] - Disposition: HOME - Home Medications Comprehensive Discharge Medication List: Ambulatory Orders NK [No Known Home Medication] 04/04/16 This patient is new to me today: No Emergency Visit: Yes ED Registration Date: 04/04/16 Care time: The patient presented to the Emergency Department on the above date and was hospitalized for further evaluation of their emergent condition. Critical Care patient: No - Discharge Referral Referred to [facility] Med P.C.: No
--- NOTE | 2016-04-07 12:06 | CONSULT ---
Consult Consult Specialty:: obgyn Reason for Consultation:: 15 weeks and urinary retention - History of Present Illness History of Present Illness: 20 y/o at 15 weeks with acute urine retention. She is a pt of [facility]. Pt may be seen as outpt at reg scheduled appt. No ob issues. Tx ecoli infection - Alcohol/Substance Use Hx Alcohol Use: No - Smoking History Smoking history: Never smoked Have you smoked in the past 12 months: No Home Medications - Allergies Allergies/Adverse Reactions: Allergies Allergy/AdvReac Type Severity Reaction Status Date / Time No Known Allergies Allergy Verified 04/04/16 09:20 - Home Medications Home Medications: Ambulatory Orders Vitamins (Sjr) - 1 tab PO DAILY #0 tablet 04/07/16 Physical Exam Vital Signs: Vital Signs Temperature 98.2 F 04/07/16 10:00 Pulse Rate 84 04/07/16 10:00 Respiratory Rate 14 04/07/16 10:00 Blood Pressure 102/56 04/07/16 10:00 O2 Sat by Pulse Oximetry (%) 98 04/06/16 21:00 Labs: CBC, BMP 04/07/16 05:35 04/07/16 05:35 Assessment/Plan no ob issues tx ecoli infection may be seen as opt
[2016-04-07] MEDS: PRENATAL VITAMINS W/ FOLIC ACID TABLET (FP) PO SCH (12:41)
--- NOTE | 2016-04-07 14:29 | PN ---
Teaching Attending Note Name of Resident: Aren Yoo ATTENDING PHYSICIAN STATEMENT I saw and evaluated the patient. I reviewed the resident's note and discussed the case with the resident. I agree with the resident's findings and plan as documented. SUBJECTIVE: Comfortable with no acute distress. No shortness of breath, no fever or chills, going home today OBJECTIVE: Vital Signs Temperature 98.2 F 04/07/16 10:00 Pulse Rate 84 04/07/16 10:00 Respiratory Rate 14 04/07/16 10:00 Blood Pressure 102/56 04/07/16 10:00 O2 Sat by Pulse Oximetry (%) 98 04/06/16 21:00 GENERAL: The patient is awake, alert, and fully oriented, in no acute distress. HEAD: Normal with no signs of trauma. EYES: PERRL, extraocular movements intact, sclera anicteric, conjunctiva clear. ENT: Ears normal, nares patent, oropharynx clear without exudates, moist mucous membranes. NECK: Trachea midline, full range of motion, supple. LUNGS: Breath sounds equal, clear to auscultation bilaterally, no wheezes, no crackles, no accessory muscle use. HEART: Regular rate and rhythm, S1, S2 without murmur, rub or gallop. ABDOMEN: Soft, nontender, nondistended, large abdomen, Positive BS, no guarding , no rebound, no masses appreciated. EXTREMITIES: 2+ pulses, warm, well-perfused, no edema. NEUROLOGICAL: Cranial nerves II through XII grossly intact. Normal speech, gait not observed. PSYCH: Normal mood, normal affect. SKIN: Warm, dry, normal turgor, no rashes or lesions noted CBCD WBC 11.4 K/mm3 (4.0-10.0) H 04/07/16 05:35 RBC 4.39 M/mm3 (3.60-5.2) 04/07/16 05:35 Hgb 11.4 GM/dL (10.7-15.3) 04/07/16 05:35 Hct 35.1 % (32.4-45.2) 04/07/16 05:35 MCV 80.0 fl (80-96) 04/07/16 05:35 MCHC 32.5 g/dl (32.0-36.0) 04/07/16 05:35 RDW 17.8 % (11.6-15.6) H 04/07/16 05:35 Plt Count 294 K/MM3 (134-434) 04/07/16 05:35 MPV 8.1 fl (7.5-11.1) 04/07/16 05:35 CMP Sodium 138 mmol/L (136-145) 04/07/16 05:35 Potassium 3.9 mmol/L (3.5-5.1) 04/07/16 05:35 Chloride 105 mmol/L (98-107) 04/07/16 05:35 Carbon Dioxide 24 mmol/L (21-32) 04/07/16 05:35 Anion Gap 9 (8-16) 04/07/16 05:35 BUN 7 mg/dL (7-18) D 04/07/16 05:35 Creatinine 0.4 mg/dL (0.55-1.02) L D 04/07/16 05:35 Creat Clearance w eGFR > 60 (>60) 04/05/16 05:00 Random Glucose 81 mg/dL (74-106) 04/07/16 05:35 Calcium 8.5 mg/dL (8.5-10.1) 04/07/16 05:35 Total Bilirubin 0.5 mg/dL (0.2-1.0) D 04/05/16 05:00 AST 18 U/L (15-37) D 04/05/16 05:00 ALT 31 U/L (12-78) 04/05/16 05:00 Alkaline Phosphatase 89 U/L (45-117) 04/05/16 05:00 Total Protein 5.8 g/dl (6.4-8.2) L 04/05/16 05:00 Albumin 2.7 g/dl (3.4-5.0) L 04/05/16 05:00 CBCD WBC 11.4 K/mm3 (4.0-10.0) H 04/07/16 05:35 RBC 4.39 M/mm3 (3.60-5.2) 04/07/16 05:35 Hgb 11.4 GM/dL (10.7-15.3) 04/07/16 05:35 Hct 35.1 % (32.4-45.2) 04/07/16 05:35 MCV 80.0 fl (80-96) 04/07/16 05:35 MCHC 32.5 g/dl (32.0-36.0) 04/07/16 05:35 RDW 17.8 % (11.6-15.6) H 04/07/16 05:35 Plt Count 294 K/MM3 (134-434) 04/07/16 05:35 MPV 8.1 fl (7.5-11.1) 04/07/16 05:35 CMP Sodium 138 mmol/L (136-145) 04/07/16 05:35 Potassium 3.9 mmol/L (3.5-5.1) 04/07/16 05:35 Chloride 105 mmol/L (98-107) 04/07/16 05:35 Carbon Dioxide 24 mmol/L (21-32) 04/07/16 05:35 Anion Gap 9 (8-16) 04/07/16 05:35 BUN 7 mg/dL (7-18) D 04/07/16 05:35 Creatinine 0.4 mg/dL (0.55-1.02) L D 04/07/16 05:35 Creat Clearance w eGFR > 60 (>60) 04/05/16 05:00 Random Glucose 81 mg/dL (74-106) 04/07/16 05:35 Calcium 8.5 mg/dL (8.5-10.1) 04/07/16 05:35 Total Bilirubin 0.5 mg/dL (0.2-1.0) D 04/05/16 05:00 AST 18 U/L (15-37) D 04/05/16 05:00 ALT 31 U/L (12-78) 04/05/16 05:00 Alkaline Phosphatase 89 U/L (45-117) 04/05/16 05:00 Total Protein 5.8 g/dl (6.4-8.2) L 04/05/16 05:00 Albumin 2.7 g/dl (3.4-5.0) L 04/05/16 05:00 04/04/16 10:35 Urine - Urine Rose Urine Culture - Final Escherichia Coli sensitive to everythting US: IMPRESSION: Single live intrauterine gestation of 15 weeks 5 days gestational age. Please see above discussion. ASSESSMENT AND PLAN: This is an otherwise healthy 20 year old female, , 16 wks , who presented to the ED today complaining of dysuria/burning on urination and urinary retention since last night. She denies fevers/chills, vomiting, back pain, or any other symptoms. # s/p Syncope vasovagal monitor in tele # UTI (urinary tract infection) s/p Ceftriaxone will discharge the patient on Amoxicillin Amoxil 500mg tid #9 # follow up with OBGYN as an outpatient . DVT prophylax: early ambulation prolonged Holter/telemetry as an outpatient.
--- NOTE | 2016-04-07 17:07 | EKG ---
Test Reason : Blood Pressure : / mmHG Vent. Rate : 102 BPM Atrial Rate : 102 BPM P-R Int : 166 ms QRS Dur : 090 ms QT Int : 378 ms P-R-T Axes : 035 057 014 degrees QTc Int : 492 ms SINUS TACHYCARDIA OTHERWISE NORMAL ECG NO PREVIOUS ECGS AVAILABLE Confirmed by ANETTE RIOS MD ([id number]) on 04/07/2016 5:07:29 PM Referred By: Confirmed By:ANETTE RIOS MD
--- NOTE | 2016-04-07 17:09 | EKG ---
Test Reason : Blood Pressure : / mmHG Vent. Rate : 085 BPM Atrial Rate : 085 BPM P-R Int : 194 ms QRS Dur : 092 ms QT Int : 390 ms P-R-T Axes : 019 044 035 degrees QTc Int : 464 ms NORMAL SINUS RHYTHM NORMAL ECG WHEN COMPARED WITH ECG OF 04-APR-2016 16:17, LIKELY NO SIGNIFICANT CHANGES Confirmed by ANETTE RIOS MD ([id number]) on 04/07/2016 5:08:56 PM Referred By: Confirmed By:ANETTE RIOS MD
== END 2016-04-07 14:28 | disposition home or self-care (01) | DRG 566 ==
LOC: JER 09:16 → JERBED 17:08 → OBSVTOIN 17:08 → J4W 21:28
PROVIDERS: ADMIT Internal Medicine; ATTEND Internal Medicine
DX: O23.32 Infections of other parts of urinary tract in pregnancy, second trimester (principal); N30.01 Acute cystitis with hematuria; R33.9 Retention of urine, unspecified; R55 Syncope and collapse; Z3A.16 16 weeks gestation of pregnancy; B96.20 Unspecified Escherichia coli [E. coli] as the cause of diseases classified elsewhere; R00.0 Tachycardia, unspecified; R00.1 Bradycardia, unspecified
CPT/HCPCS: 36415; 76815-TC; 76856-TC; 80048; 80053; 80061; 81003; 81015; 83721; 83735; 84100; 84443; 84702; 85025; 85027; 87086; 87186; 93005; 93010; 93306-TC; 99285-25

== ENCOUNTER 2016-09-04 17:13 | Emergency (ER) | payer OTHER ==
[2016-09-04 17:25] VITALS: BMI 53.2
[2016-09-04 18:26] VITALS: BP 108/52; PULSE 120; TEMP 97.8
== END 2016-09-04 20:30 | disposition home or self-care (01) ==
LOC: JER 17:13
DX: O26.893 Other specified pregnancy related conditions, third trimester (principal); Z3A.35 35 weeks gestation of pregnancy; N93.9 Abnormal uterine and vaginal bleeding, unspecified
CPT/HCPCS: 99281-25

== ENCOUNTER 2016-09-29 05:30 | Inpatient (IN) | payer OTHER ==
[2016-09-29] MEDS ORDERED: ELECTROLYTE-148 SOLN 500 ML IV ONE (06:00)
[2016-09-29] MEDS ORDERED: CITRIC ACID/SODIUM CITRATE 30 ML UNIT-DOSE CUP PO ONE (06:30)
[2016-09-29] MEDS ORDERED: ELECTROLYTE-148 SOLN 1,000 ML IV SCH (06:30)
--- NOTE | 2016-09-29 07:00 | HP ---
Past Medical History - Primary Care Physician PCP:: Marnie Nunez - Admission Chief Complaint: 20 yrs , 39 weeks gestation, previous c/section , Morbidly obese , is admitted for Repeat c/section History of Present Illness: care at [address] [place] [address] . wt gain 60 lbs wt gain work Up : O Pos, Rpr nr, Hbsag neg, Rubella pos, Quantiferon neg, Sickle neg, Gc/ct neg, Hiv neg, Sickle neg, GBS neg, Pngt 106 she was hospitalized in 02/2016 for syncopal attack, urine retention . cardiology consult was done Ecoli , UTI treated with IV ceftriaxione followed by PO Amoxcillin. . US anatomy was noted, She was recommended Po aspirin by MFm , she did not take History Source: Patient, Medical Record Limitations to Obtaining History: No Limitations - Past Medical History MOLECULAR SPECTROSCOPIST: No: Migraine, Seizure Cardiovascular: Yes: Other (h/o syncopal attack during early pregn 02/2016 hospitalized). No: HTN, Murmur Pulmonary: No: Asthma Gastrointestinal: No: Gastritis, GERD Hepatobiliary: No: Hepatitis B ...: 3 ...Para: 1 ...Term: 1 (07/09/2009, primary c/section , due to Macrosomia in [facility] 9'8" ) ...Spon : 1 ...LMP: 12/03/15 (mistaken dates ) ...EDC by Dates: 09/08/16 (error ) ...EDC by Sono: 10/06/16 (39 weeks by sono ) Heme/Onc: Yes: Anemia Infectious Disease: No: AIDS, HIV, STD's Psych: No: Addictions, Anxiety, Bipolar, Depression Endocrine: No: Diabetes Mellitus, Hyperparathyroidism, Hypothyroidism - Past Surgical History Past Surgical History: No: (07/09/2009 in [facility]) Hx Myomectomy: No Hx Transabdominal Cerclage: No - Smoking History Smoking history: Never smoked Have you smoked in the past 12 months: No - Alcohol/Substance Use Hx Alcohol Use: No History of Substance Use: reports: None - Social History History of Recent Travel: No Home Medications - Allergies Allergies/Adverse Reactions: Allergies Allergy/AdvReac Type Severity Reaction Status Date / Time No Known Allergies Allergy Verified 09/29/16 07:01 - Home Medications Home Medications: Ambulatory Orders Vitamins (Sjr) - 1 tab PO DAILY #0 tablet 04/07/16 Ferrous Sulfate [Feosol] 325 mg PO DAILY 09/29/16 Physical Exam - Maternity Vital Signs: Selected Entries 09/29/16 05:59 Temperature 97.6 F Pulse Rate 111 H Respiratory 20 Rate Blood Pressure 120/67 Weight 320 lb Constitutional: Yes: Well Nourished, No Distress, Obese Eyes: Yes: WNL HENT: Yes: WNL, Normocephalic Neck: Yes: WNL Cardiovascular: Yes: WNL, Regular Rate and Rhythm Lungs: Clear to auscultation Breast(s): Yes: WNL - Abdominal Exam/OB Fundal Height: 44 Number of Fetuses: Single Presentation: Vertex Contractions: No Monitor Mode: External Heart Rate (range): 130-140 Heart Rate Location: [facility] Category: I Accelerations: Uniform Decelerations: None - Vaginal Exam/OB Vaginal Bleediing: No Dilatation (cm): close Effacement (%): unefface Amniotic Membrane Status: Intact Presentation: Vertex/Position Station: -3 - Physical Exam Musculoskeletal: Yes: WNL Extremities: Yes: WNL Edema: Yes Edema: RLE: 2+ Integumentary: Yes: Incision, Jaundice (previous subumblical midline scar) Deep Tendon Reflex Grade: Normal +2 ...Motor Strength: WNL Psychiatric: Yes: WNL, Alert, Oriented - Labs Lab Results: Laboratory Tests 09/27/16 09/27/16 09/27/16 08:00 08:00 08:00 WBC 12.2 H Hgb 11.5 Hct 35.5 Plt Count 282 Neutrophils % 69.8 Lymphocytes % 19.2 Monocytes % 8.7 Eosinophils % 1.9 Basophils % 0.4 INR 0.93 Sodium Potassium Chloride Carbon Dioxide BUN Creatinine Random Glucose AST ALT Urine Protein Negative Urine Ketones Negative RPR Titer 09/27/16 09/27/16 08:00 08:36 WBC Hgb Hct Plt Count Neutrophils % Lymphocytes % Monocytes % Eosinophils % Basophils % INR Sodium 139 Potassium 4.2 Chloride 105 Carbon Dioxide 24 BUN 7 Creatinine 0.4 L Random Glucose 95 AST 54 H D ALT 103 H D Urine Protein Urine Ketones RPR Titer Nonreactive Hemorrhage Risk Assessment - Risk Factors Medium Risk Factors: Yes: Obesity (BMI >40) Risk Score: 1 Risk Level: Medium Risk Problem List - Problems (1) 39 weeks gestation of Code(s): Z3A.39 - 39 WEEKS GESTATION OF (2) Previous section complicating Code(s): O34.219 - MATERNAL CARE FOR UNSP TYPE SCAR FROM PREVIOUS DEL (3) Morbid obesity with BMI of 50.0-59.9, adult Code(s): E66.01 - MORBID (SEVERE) OBESITY DUE TO EXCESS CALORIES Z68.43 - BODY MASS INDEX (BMI) 50-59.9 , ADULT Assessment/Plan 20 yrs , 39 weeks iup, previous c/section type unknown ,morbidly obese , for repeat c/section today
[2016-09-29 07:05] VITALS: BMI 51.6
[2016-09-29 08:56] LABS: ARTERIAL BLD GAS O2 SATURATION 23.9 % (90-98.9); ARTERIAL BLOOD GAS BASE EXCESS -1.2 meq/l (-2-2)
[2016-09-29 08:59] LABS: ARTERIAL BLD GAS O2 SATURATION 47.8 % (90-98.9); ARTERIAL BLOOD GAS BASE EXCESS -1.1 meq/l (-2-2); ARTERIAL BLOOD GAS HCO3 25.7 meq/L (22-26); ARTERIAL BLOOD GAS PO2 23.7 mmHg (80-100)
[2016-09-29 09:03] LABS: ARTERIAL BLOOD GAS PO2 16.2 mmHg (80-100)
[2016-09-29 09:04] LABS: ARTERIAL BLOOD GAS pH 7.26 (7.35-7.45)
[2016-09-29] MEDS ORDERED: ONDANSETRON 4 MG/2 ML VIAL IVPB PRN (09:50)
[2016-09-29] MEDS ORDERED: ACETAMINOPHEN 1000 MG/100 ML VIAL (NON FORMULARY) IVPB PRN (09:52)
[2016-09-29] MEDS ORDERED: METHYLERGONOVINE MALEATE 0.2 MG/1 ML AMP IM PRN (10:02)
[2016-09-29] MEDS ORDERED: OXYTOCIN 20 UNITS in 0.9% NS 1,000 ML IV SCH (10:15)
--- NOTE | 2016-09-29 10:17 | OP ---
Operative Note - Note: Operative Date: 09/29/16 Pre-Operative Diagnosis: 39 weeks, previous c/section, morbid obesity Operation: Repeat LFTC/S Findings: 837 AM, Baby Boy, Vx ROT, 9/9, wt 8'11" SQ tissue thick layer encountered both tubes & ovaries normal . Dr Dorothy Allen present in the OR Surgeon: Marnie Nunez Loader Malt House: Daniele Alexander Anesthesiologist/FLARE MAKER: Jessica Costello Anesthesia: Spinal Estimated Blood Loss (mls): 700 Drains, Volume Out (mls): 50 (prasad, ruddy color urine ) Fluid Volume Replaced (mls): 2,300 (IV ancef 2 gm Ivpb given ) Operative Report Dictated: Yes
--- NOTE | 2016-09-29 10:20 | PN ---
Delivery - Delivery Section: Repeat, Low Flap Transverse (indication 39 weeks, previous c/ section type unknown ,Morbid Obesity) Type of Anesthesia: Spinal Episiotomy/Laceration: None EBL (cc): 700 Delivery, Single - Stages of Labor Date of Delivery: 09/29/16 Time of Delivery: 08:37 Time Placenta Delivered: 08:38 Placenta: Yes: Manual Removal, Uterine Exploration - Condition of Infant Flexo Folder Gluer Operator/Division Traffic Superintendent Present: Yes Name: Tiffany De La Cruz Gender: Male Weight: 8 lb 11 oz Position: Right, OT Total Hours ROM (Hrs/Mins): 4min - 1 Minute Total Score: 9 5 Minutes Total Score: 9 - Feeding Plan Initial Plan: Exclusive throughout hospitalization Remarks - Remarks Remarks: 20 yrs , 39 weeks, previous c/sx 1 type unknown admitted for repeat c/s Pt's wt 320 lbs .GBs neg pnc at , [facility] Intraop course uneventful
--- NOTE | 2016-09-29 10:55 | OP ---
DATE OF OPERATION: 09/29/2016 PREOPERATIVE DIAGNOSIS: At 39-week , previous section, morbid obesity. OPERATION: Repeat low flap transverse section. SURGEON: Marnie Nunez MD MONORAIL OPERATOR SURGEON: ML Cummings ANESTHESIA: Jessica Costello MD, spinal. FINDINGS: This is a 20-year-old 3, para 1-0-1-1 at 39 weeks' gestation with previous section type unknown. The patient's weight is 320 pounds. She has a previous skin scar, a subumbilical midline scar. Patient not in labor. Cervix was closed. DESCRIPTION OF PROCEDURE: The patient is taken to the operating room table. Prior to that, abdomen was shaved and prepped. Rose catheter was placed, and she was given spinal anesthesia. She was placed in supine position in the OR. The abdomen was painted and draped in the usual manner. A Pfannenstiel incision was made in the skin and subcutaneous tissue. A thick layer was incised transversely and then the anterior rectus sheath was incised transversely. Bleeding points were clamped and cauterized. Rectus muscles were from the rectus sheath. Peritoneal peritoneum was opened vertically. The lower flap bladder peritoneum was incised transversely and bladder was pushed down. Lower uterine segment was incised transversely. Amniotic fluid was clear. Baby in the vertex presentation was delivered from ROT position at 8:37 a.m. Baby's Apgars were 9/9. Weight was 8 pounds 11 ounces. Cord was clamped and cut. Cord blood was collected and also the cord segment was sent for cord blood gases, which were normal subsequently. Dr. Tiffany De La Cruz was present in the OR as the neonatalologist. The uterine cavity was cleaned of its membranes. Placenta was completely removed then uterine lower segment incision was held with 4 clamps, and the uterine incision was closed in 2 layers. First layer was closed with a Biosyn 0 continuous locking suture. Second layer was closed with a Biosyn 0 continuous intermittent locking sutures were taken. Vertical mattress sutures were taken. Then hemostasis was verified and bladder peritoneum was closed with a Biosyn 0 suture. Both tubes and ovaries were palpated. They were normal. Irrigation was done. Sponge, needle, instrument count was correct. Then closure of the abdomen was done. Parietal peritoneum was closed with a Vicryl 0 suture. Muscles were approximated with a Vicryl 0 interrupted suture below the rectus sheath. Hemostasis was verified and then anterior rectus sheath was closed with Vicryl 1. Continuous sutures were taken, and hemostasis was verified again. Subcutaneous tissue was approximated in 2 layers with a Biosyn 0 Vicryl and then skin was approximated with madhu. The patient tolerated the procedure well. Pressure dressing was given. Blood clots were removed from the vagina. She was transferred to the recovery room in stable condition. Estimated blood loss was 700 mL. Intraoperative urine output was 50 mL. She received 2 g of IV Ancef prior to the incision. Rachel [id number] MTDD
[2016-09-29] MEDS ORDERED: DIPHTH,PERTUSS(ACELL),TET 0.5 ML DISP.SYRIN IM ONE (12:00)
[2016-09-29] MEDS ORDERED: SODIUM CHLORIDE 0.9% 1000 ML INFUS.BAG IV ONE (14:02)
[2016-09-29] MEDS: CEFAZOLIN 2 GM/D5W 50 ML IVPB SCH (18:00)
[2016-09-29] MEDS ORDERED: SENNOSIDES/DOCUSATE COMBO (SENNA PLUS) TABLET (UD) PO PRN (22:00)
[2016-09-29] MEDS: ENOXAPARIN NA (PORCINE) 40 MG/0.4 ML DISP.SYRIN SQ SCH (22:30)
[2016-09-30] MEDS: CEFAZOLIN 2 GM/D5W 50 ML IVPB SCH ×2 (01:15→11:00)
--- NOTE | 2016-09-30 05:16 | PN ---
Post Progress Note - Subjective Subjective: resting in bed, denies pain, no nausea Post Day: 1 Type of Delivery: Repeat C/S Vital Signs: Vital Signs Temperature 98.4 F 09/30/16 01:00 Pulse Rate 84 09/30/16 01:00 Respiratory Rate 20 09/30/16 01:00 Blood Pressure 117/56 09/30/16 01:00 O2 Sat by Pulse Oximetry (%) 98 09/29/16 21:21 Breast Exam: Yes: Soft Uterus: Yes: Fundus Firm Incision: Yes: Dressing dry and intact Abdomen/GI: Yes: Abdomen soft Lochia: Yes: Rubra Lochia, amount: Small Extremities: Yes: Calves non-tender Perineum: Yes: Intact Activity: Ambulating Assessment/Plan oob reg diet check labs routine pp care
[2016-09-30 07:57] LABS: BASOPHIL 0.4 % (0-2.0); EOSINOPHIL 0.9 % (0-4.5); MCH 25.7 pg (25.7-33.7); MCHC 32.4 g/dl (32.0-36.0); MEAN CELL VOLUME 79.4 fl (80-96); NEUTROPHILS 72.9 % (42.8-82.8); PLATELET COUNT 240 K/MM3 (134-434); WHITE BLOOD COUNT 12.6 K/mm3 (4.0-10.0)
--- NOTE | 2016-09-30 09:21 | PN ---
Progress Note, Physician Chief Complaint: Pt. not yet ambulating or voiding, pain controlled, no NEFF. - Current Medication List Current Medications: Active Medications Acetaminophen (Tylenol -) 650 mg PO Q4H PRN PRN Reason: FEVER OR PAIN Bisacodyl (Dulcolax Suppository -) 10 mg RC PRN PRN PRN Reason: CONSTIPATION Diphenhydramine HCl (Benadryl Injection -) 25 mg IVPUSH Q4H PRN PRN Reason: Pruritis Enoxaparin Sodium (Lovenox -) 40 mg SQ DAILY@2200 [facility] Last Admin: 09/29/16 22:30 Dose: 40 mg Ferrous Sulfate (Feosol -) 325 mg PO BID [facility] Oxytocin/Sodium Chloride (Normal Saline+20 Units Oxytocin -) 1,000 mls @ 125 mls/hr IV ASDIR [facility] Last Admin: 09/29/16 10:30 Dose: 125 mls/hr Cefazolin Sodium/Dextrose (Ancef 2 Gm Premixed Ivpb -) 50 mls @ 100 mls/hr IVPB Q8H-IV [facility] Stop: 09/30/16 17:59 Last Admin: 09/30/16 01:15 Dose: 100 mls/hr Ibuprofen (Motrin -) 600 mg PO Q4H PRN PRN Reason: PAIN Methylergonovine Maleate (Methergine Injection -) 0.2 mg IM Q4H PRN PRN Reason: Excessive Bleeding (L&D) Oxycodone HCl (Roxicodone -) 5 mg PO Q4H PRN PRN Reason: PAIN LEVEL 1-5 Oxycodone HCl (Roxicodone -) 10 mg PO Q4H PRN PRN Reason: PAIN LEVEL 6-10 Multivit/Folic Acid/Iron ( Vitamins (Sjr) -) 1 tab PO DAILY [facility] Senna/Docusate Sodium (Pericolace -) 2 tablet PO HS PRN PRN Reason: CONSTIPATION Simethicone (Mylicon -) 80 mg PO Q4H PRN PRN Reason: GAS - Objective Vital Signs: Vital Signs Temperature 98.6 F 09/30/16 05:00 Pulse Rate 91 H 09/30/16 05:00 Respiratory Rate 20 09/30/16 08:39 Blood Pressure 119/55 09/30/16 05:00 O2 Sat by Pulse Oximetry (%) 97 07/04/17 05:17 Constitutional: Yes: Well Nourished, No Distress, Calm Musculoskeletal: Yes: WNL Neurological: Yes: WNL, Alert, Oriented ...Motor Strength: WNL Labs: CBC, BMP 09/30/16 07:30 Assessment/Plan POD#1 s/p repeat under spinal with DM. Doing well. D/C from anesthesia care once she ambulates and voids.
[2016-09-30] MEDS ORDERED: ENOXAPARIN NA (PORCINE) 40 MG/0.4 ML DISP.SYRIN SQ SCH (10:00)
[2016-09-30] MEDS ORDERED: BISACODYL 10 MG SUPP.RECT RC PRN (10:02)
[2016-09-30] MEDS ORDERED: oxyCODONE HCL 5 MG TABLET PO PRN ×2 (10:02)
[2016-09-30] MEDS: PRENATAL VITAMINS W/ FOLIC ACID TABLET (FP) PO SCH (11:20)
[2016-09-30] MEDS: FERROUS SO4 325 MG TABLET (FP) PO SCH (21:16)
[2016-09-30] MEDS: ENOXAPARIN NA (PORCINE) 40 MG/0.4 ML DISP.SYRIN SQ SCH (21:17)
[2016-10-01] MEDS: ACETAMINOPHEN 325 MG TABLET (FP) PO PRN ×2 (07:39→20:14)
[2016-10-01] MEDS: IBUPROFEN 600 MG TABLET (FP) PO PRN ×2 (07:40→20:14)
[2016-10-01] MEDS: SIMETHICONE 80 MG TAB.CHEW (FP) PO PRN ×2 (07:41→20:14)
--- NOTE | 2016-10-01 07:52 | PN ---
Post Progress Note - Subjective Subjective: no complains. pain scale 5/10 Post Day: 2 Type of Delivery: Repeat C/S Vital Signs: Vital Signs Temperature 98.6 F 09/30/16 21:43 Pulse Rate 95 H 09/30/16 21:43 Respiratory Rate 20 09/30/16 21:43 Blood Pressure 131/68 09/30/16 21:43 O2 Sat by Pulse Oximetry (%) 97 09/30/16 05:17 Breast Exam: Yes: Soft, Other (not BF ). No: Engorged Uterus: Yes: Fundus Firm, Fundus below umbilicus Incision: Yes: Dressing dry and intact (to be changed ). No: Redness, Oozing Abdomen/GI: Yes: Abdomen soft, Abdominal Distention (obese abdomen . bs active ) , Passing flatus (bm done ), Tolerating PO (diet ). No: Tender Lochia: Yes: Rubra Lochia, amount: Moderate Extremities: Yes: Calves non-tender Perineum: Yes: Intact Activity: Ambulating - Labs Labs: CBC WBC 12.6 K/mm3 (4.0-10.0) H 09/30/16 07:30 RBC 3.70 M/mm3 (3.60-5.2) 09/30/16 07:30 Hgb 9.5 GM/dL (10.7-15.3) L D 09/30/16 07:30 Hct 29.4 % (32.4-45.2) L D 09/30/16 07:30 MCV 79.4 fl (80-96) L 09/30/16 07:30 MCHC 32.4 g/dl (32.0-36.0) 09/30/16 07:30 RDW 16.0 % (11.6-15.6) H 09/30/16 07:30 Plt Count 240 K/MM3 (134-434) 09/30/16 07:30 MPV 8.0 fl (7.5-11.1) 09/30/16 07:30 Neutrophils % 72.9 % (42.8-82.8) 09/30/16 07:30 Lymphocytes % 16.7 % (8-40) 09/30/16 07:30 Monocytes % 9.1 % (3.8-10.2) 09/30/16 07:30 Eosinophils % 0.9 % (0-4.5) 09/30/16 07:30 Basophils % 0.4 % (0-2.0) 09/30/16 07:30 Other Findings, Remarks: rs cta Problem List - Problems (1) 39 weeks gestation of Code(s): Z3A.39 - 39 WEEKS GESTATION OF (2) Previous section complicating Code(s): O34.219 - MATERNAL CARE FOR UNSP TYPE SCAR FROM PREVIOUS DEL (3) Morbid obesity with BMI of 50.0-59.9, adult Code(s): E66.01 - MORBID (SEVERE) OBESITY DUE TO EXCESS CALORIES Z68.43 - BODY MASS INDEX (BMI) 50-59.9 , ADULT Assessment/Plan stable . plan ct po care, encourage ambulation, , deep breathing , , po fluids
[2016-10-01] MEDS: PRENATAL VITAMINS W/ FOLIC ACID TABLET (FP) PO SCH (10:21)
[2016-10-01] MEDS: FERROUS SO4 325 MG TABLET (FP) PO SCH ×2 (10:21→21:11)
[2016-10-01] MEDS: ENOXAPARIN NA (PORCINE) 40 MG/0.4 ML DISP.SYRIN SQ SCH (21:11)
[2016-10-02 08:17] LABS: BASOPHIL 0.6 % (0-2.0); EOSINOPHIL 3.4 % (0-4.5); MCH 26.1 pg (25.7-33.7); MCHC 32.7 g/dl (32.0-36.0); MEAN CELL VOLUME 79.9 fl (80-96); MEAN PLT VOLUME 7.5 fl (7.5-11.1); NEUTROPHILS 71.6 % (42.8-82.8); PLATELET COUNT 261 K/MM3 (134-434); RDW 16.6 % (11.6-15.6); WHITE BLOOD COUNT 10.2 K/mm3 (4.0-10.0)
[2016-10-02] MEDS: FERROUS SO4 325 MG TABLET (FP) PO SCH (09:18)
[2016-10-02] MEDS: PRENATAL VITAMINS W/ FOLIC ACID TABLET (FP) PO SCH (09:18)
[2016-10-02] MEDS: ACETAMINOPHEN 325 MG TABLET (FP) PO PRN (09:19)
[2016-10-02] MEDS: IBUPROFEN 600 MG TABLET (FP) PO PRN (09:19)
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
[2016-10-02 12:37] VITALS: BP 119/78; PULSE 83; TEMP 98.5
== END 2016-10-02 13:40 | disposition home or self-care (01) | DRG 540 ==
LOC: JLDR 05:30 → J3W 11:07
PROVIDERS: ADMIT Obstetrics & Gynecology; ATTEND Obstetrics & Gynecology
PROC: 10D00Z1 Extraction of Products of Conception, Low, Open Approach (ICD-10-PCS; principal; 2016-09-29)
DX: O34.211 Maternal care for low transverse scar from previous cesarean delivery (principal); N85.8 Other specified noninflammatory disorders of uterus; O99.214 Obesity complicating childbirth; E66.01 Morbid (severe) obesity due to excess calories; Z68.43 Body mass index [BMI] 50.0-59.9, adult; O99.02 Anemia complicating childbirth; Z3A.39 39 weeks gestation of pregnancy; Z37.0 Single live birth
CPT/HCPCS: 36415; 36600; 82803; 85025; 86850; 86900; 86901; 90715

== ENCOUNTER 2019-05-06 22:19 | Emergency (ER) | payer OTHER ==
[2019-05-06 22:33] VITALS: BP 124/65; PULSE 97; TEMP 97; BMI 37.1
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
== END 2019-05-07 01:04 | disposition home or self-care (01) ==
LOC: JER 22:19
DX: S00.01XA Abrasion of scalp, initial encounter (principal); Y00.XXXA Assault by blunt object, initial encounter; Y93.89 Activity, other specified; Y92.038 Other place in apartment as the place of occurrence of the external cause; Y99.8 Other external cause status; Y07.01 Husband, perpetrator of maltreatment and neglect
CPT/HCPCS: 70450-TC; 99283-25

== ENCOUNTER 2023-10-29 16:01 | Emergency (ER) | payer OTHER ==
[2023-10-29 16:15] VITALS: RESP 16; TEMP 98.1; BMI 52.4
[2023-10-29 17:23] LABS: PH,URINE 5.5 (5.0-8.0); URINE APPEARANCE CLEAR; URINE BILIRUBIN NEGATIVE (NEGATIVE); URINE COLOR YELLOW; URINE GLUCOSE (UA) NEGATIVE (NEGATIVE); URINE KETONE NEGATIVE (NEGATIVE); URINE LEUK ESTERASE NEGATIVE (NEGATIVE); URINE NITRITE NEGATIVE (NEGATIVE); URINE PROTEIN NEGATIVE (NEGATIVE); URINE UROBILINOGEN 0.2 mg/dL (0.2-1.0)
[2023-10-29 17:25] LABS: HCG,QUALITATIVE URINE Negative
[2023-10-29] MEDS ORDERED: ASPIRIN 81 MG CHEWABLE TABLETS ONE (17:31)
[2023-10-29] MEDS: ASPIRIN 81 MG CHEWABLE TABLETS PO ONE (17:35)
[2023-10-29 17:56] LABS: BASO % 0.7 % (0-2.0); EOS % 1.7 % (0-4.5); HEMATOCRIT 36.6 % (32.4-45.2); HEMOGLOBIN 11.7 GM/dL (10.7-15.3); LYMPH % 25.6 % (8-40); MCH 23.5 pg (25.7-33.7); MEAN CELL VOLUME 73.6 fl (80-96); MEAN PLT VOLUME 7.5 fl (7.5-11.1); MONO % 6.6 % (3.8-10.2); NEUT % 65.4 % (42.8-82.8); PLATELET COUNT 348 10^3/uL (134-434); RBC 4.97 M/mm3 (3.60-5.2); RDW 16.8 % (11.6-15.6); WHITE BLOOD COUNT 13.4 K/mm3 (4.0-10.0)
[2023-10-29 18:02] VITALS: BP 142/77; PULSE 69
[2023-10-29 18:03] LABS: INR 0.94 (0.83-1.09); PROTHROMBIN TIME (PATIENT) 10.8 SEC (9.7-13.0)
[2023-10-29 18:05] LABS: ACTIVATED PTT 24.9 SECONDS (25.2-36.5)
[2023-10-29 18:19] LABS: ALBUMIN 3.7 g/dl (3.4-5.0); BLOOD UREA NITROGEN 12.9 mg/dL (7-18); CALCIUM 8.7 mg/dL (8.5-10.1); MAGNESIUM 2.1 mg/dL (1.8-2.4)
[2023-10-29 18:22] LABS: CREATININE 0.5 mg/dL (0.55-1.3)
[2023-10-29 18:24] LABS: BILIRUBIN,TOTAL 0.3 mg/dL (0.2-1); TOT PROT 7.6 g/dl (6.4-8.2)
[2023-10-30 00:34] LABS: HIV INTERPRETATION NEGATIVE (NEGATIVE)
== END 2023-10-29 20:53 | disposition home or self-care (01) ==
LOC: JER 16:01
DX: R07.89 Other chest pain (principal)
CPT/HCPCS: 36415; 71046-TC-FY; 80053; 81003; 83735; 84484; 84703; 85025; 85610; 85730; 86803; 87389; 93005; 93010; 99285-25

== ENCOUNTER 2024-02-03 10:45 | Emergency (ER) | payer OTHER ==
[2024-02-03 10:54] VITALS: BP 108/72; PULSE 79; RESP 20; TEMP 97.6; BMI 42.9
[2024-02-03] MEDS ORDERED: BACITRACIN ZINC 15 GM TUBE TOPICAL OINTMENT TP ONE (12:15)
[2024-02-03] MEDS ORDERED: BACITRACIN ZINC 15 GM TUBE TOPICAL OINTMENT ONE (12:15)
== END 2024-02-03 12:22 | disposition home or self-care (01) ==
LOC: JERFT 10:45
DX: T20.17XA Burn of first degree of neck, initial encounter (principal); X15.3XXA Contact with hot saucepan or skillet, initial encounter
CPT/HCPCS: 99283-25

== ENCOUNTER 2024-09-25 00:44 | Observation (INO) | payer OTHER ==
[2024-09-25 00:56] VITALS: BMI 51.5
[2024-09-25] MEDS ORDERED: ALBUTEROL SO4 2.5/IPRATROPIUM 0.5 INH SOL 3 ML VIAL.NEB. NEB ONE (02:39)
[2024-09-25] MEDS: ALBUTEROL SO4 2.5/IPRATROPIUM 0.5 INH SOL 3 ML VIAL.NEB. NEB SCH (03:03)
[2024-09-25] MEDS: ACETAMINOPHEN 325 MG TABLET (FP) PO ONE (03:03)
[2024-09-25] MEDS ORDERED: ACETAMINOPHEN 325 MG TABLET (FP) ONE (04:27)
[2024-09-25] MEDS: SODIUM CHLORIDE 0.9% 500 ML INFUS.BAG IV ONE (04:55)
[2024-09-25 05:09] LABS: ABSOLUTE IMMATURE GRANULOCYTES 0.06 x10^3/uL (0.0-0.031); BASOPHILS # 0.05 x10^3/uL (0.01-0.08); EOSINOPHIL % 0.1 % (0.7-5.8); EOSINOPHILS # 0.01 x10^3/uL (0.04-0.36); HEMATOCRIT 39.7 % (34.1-44.9); HEMOGLOBIN 12.3 g/dL (11.2-15.7); MEAN CELL VOLUME 80.7 fl (79.4-94.8); MEAN PLT VOLUME 10.1 fl (9.4-12.3); MONOCYTE # 0.89 x10^3/uL (0.24-0.86); MONOCYTE % 6.5 % (4.7-12.5); PLATELET COUNT 277 x10^3/uL (182-369); RDW 16.7 % (12.1-16.5)
[2024-09-25 05:29] LABS: POTASSIUM 3.5 mmol/L (3.5-5.1)
[2024-09-25 05:31] LABS: CALCIUM 9.1 mg/dL (8.5-10.1)
[2024-09-25 05:32] LABS: ALBUMIN 3.6 g/dl (3.4-5.0); BLOOD UREA NITROGEN 4.4 mg/dL (7-18); MAGNESIUM 1.8 mg/dL (1.8-2.4)
[2024-09-25 05:34] LABS: CREATININE 0.7 mg/dL (0.55-1.3)
[2024-09-25 05:36] LABS: BILIRUBIN,TOTAL 0.5 mg/dL (0.2-1); TOT PROT 7.3 g/dl (6.4-8.2)
[2024-09-25] MEDS: KETOROLAC TROMETHAMINE 15 MG/ML VIAL IVPUSH ONE (06:49)
[2024-09-25] MEDS ORDERED: KETOROLAC TROMETHAMINE 15 MG/ML VIAL ONE (06:56)
[2024-09-25] MEDS ORDERED: AZITHROMYCIN IVPB 500 MG/250 ML BAG IVPB ONE (07:46)
[2024-09-25] MEDS ORDERED: CEFTRIAXONE 1 GM/50 ML BAG ONE (07:46)
[2024-09-25] MEDS: LACTATED RINGERS SOLUTION 1000 ML INFUS.BAG IV ONE (08:01)
[2024-09-25] MEDS: CEFTRIAXONE 1,000 MG in DEXTROSE 5%-WATER - 50 ML IVPB ONE (08:01)
[2024-09-25] MEDS: AZITHROMYCIN IVPB 500 MG in DEXTROSE 5%-WATER - 250 ML IVPB ONE (08:01)
[2024-09-25] MEDS ORDERED: ALBUTEROL SO4 0.083% IH SOL 2.5 MG/3 ML VIAL.NEB. NEB PRN (08:16)
[2024-09-25] MEDS: LACTATED RINGERS SOLUTION 1,000 ML/1,000 ML INFUS.BAG IV SCH ×2 (09:30→17:21)
[2024-09-25] MEDS: ACETAMINOPHEN 500 MG TABLET (FP) PO PRN (11:45)
[2024-09-25 13:10] LABS: HCG,QUALITATIVE URINE Negative
[2024-09-25] MEDS: PIPERACILLIN/TAZOB 4.5 GM 4.5 GM in DEXTROSE 5%-WATER 100 ML IVPB SCH (13:14)
[2024-09-25 13:15] LABS: EPI CELLS 14 /uL (0-25.1); HYALINE CASTS 1 /uL (0-3.1); PH,URINE 5.5 (5.0-8.0); URINE APPEARANCE CLEAR; URINE BACTERIA 402 /uL (0-1359); URINE BILIRUBIN NEGATIVE (NEGATIVE); URINE COLOR DK YELLOW; URINE GLUCOSE (UA) NEGATIVE (NEGATIVE); URINE KETONE 1+ (NEGATIVE); URINE LEUK ESTERASE NEGATIVE (NEGATIVE); URINE NITRITE NEGATIVE (NEGATIVE); URINE PROTEIN 1+ (NEGATIVE); URINE RBC 1176 /uL (0-23.9); URINE WBC 28 /uL (0-25.8)
[2024-09-25] MEDS: HEPARIN NA (PORCINE) 5,000 UNITS/ML 1ML VIAL SQ SCH (21:37)
[2024-09-26] MEDS ORDERED: PIPERACILLIN/TAZOBACTAM 4.5 GM VIAL IVPB ONE (01:06)
[2024-09-26] MEDS: PIPERACILLIN/TAZOB 4.5 GM 4.5 GM in DEXTROSE 5%-WATER 100 ML IVPB SCH (01:08)
[2024-09-26] MEDS ORDERED: CEFTRIAXONE 1 G/50 ML PREMIX 50 ML IVPB ONE (08:15)
[2024-09-26 08:56] LABS: ABSOLUTE IMMATURE GRANULOCYTES 0.02 x10^3/uL (0.0-0.031); BASOPHILS # 0.03 x10^3/uL (0.01-0.08); EOSINOPHIL % 0.8 % (0.7-5.8); EOSINOPHILS # 0.08 x10^3/uL (0.04-0.36); HEMATOCRIT 35.6 % (34.1-44.9); HEMOGLOBIN 10.9 g/dL (11.2-15.7); MCHC 30.6 g/dl (32.2-35.5); MEAN CELL VOLUME 81.1 fl (79.4-94.8); MEAN PLT VOLUME 10.2 fl (9.4-12.3); MONOCYTE # 0.84 x10^3/uL (0.24-0.86); MONOCYTE % 8.8 % (4.7-12.5); PLATELET COUNT 267 x10^3/uL (182-369); RDW 16.7 % (12.1-16.5)
[2024-09-26] MEDS: AZITHROMYCIN 500 MG TABLET PO SCH (09:11)
[2024-09-26 09:22] LABS: POTASSIUM 3.5 mmol/L (3.5-5.1)
[2024-09-26 09:27] LABS: CALCIUM 8.5 mg/dL (8.5-10.1)
[2024-09-26 09:28] LABS: BLOOD UREA NITROGEN 3.5 mg/dL (7-18)
[2024-09-26 09:31] LABS: CREATININE 0.5 mg/dL (0.55-1.3)
[2024-09-26 11:54] VITALS: RESP 20
[2024-09-26 13:27] VITALS: BP 125/73; PULSE 76; TEMP 99.4
[2024-09-26 23:05] LABS: HCV DIAGNOSTIC IN-HOUSE W/RFLX NON-REACTIVE (NONREACTIVE)
[2024-09-26 23:06] LABS: HIV INTERPRETATION NEGATIVE (NEGATIVE)
== END 2024-09-26 15:50 | disposition left against medical advice (07) ==
LOC: JER 00:44 → JERBED 08:48 → J5S 10:14
PROVIDERS: ADMIT Internal Medicine; ATTEND Internal Medicine
PROC: 3E0F7GC Introduction of Other Therapeutic Substance into Respiratory Tract, Via Natural or Artificial Opening (ICD-10-PCS; principal; 2024-09-25)
PROC: 3E03329 Introduction of Other Anti-infective into Peripheral Vein, Percutaneous Approach (ICD-10-PCS; 2024-09-25)
PROC: 3E023GC Introduction of Other Therapeutic Substance into Muscle, Percutaneous Approach (ICD-10-PCS; 2024-09-25)
PROC: 3E0333Z Introduction of Anti-inflammatory into Peripheral Vein, Percutaneous Approach (ICD-10-PCS; 2024-09-25)
PROC: 3E0337Z Introduction of Electrolytic and Water Balance Substance into Peripheral Vein, Percutaneous Approach (ICD-10-PCS; 2024-09-25)
DX: J18.9 Pneumonia, unspecified organism (principal); J45.909 Unspecified asthma, uncomplicated; E66.9 Obesity, unspecified; R06.02 Shortness of breath; R05.9 Cough, unspecified
CPT/HCPCS: 0241U-QW; 36415; 71275-TC; 80048; 80053; 81003; 83735; 84703; 85025; 86803; 87040; 87086; 87389; 93005; 93010; 94640; 96361; 96365; 96367; 96372; 96375; 99285-25; G0378; Q9967